=== PATIENT | female | born 1990 | race Caucasian/White ===

== ENCOUNTER 2017-11-02 12:50 | Emergency (ER) | payer OTHER, MEDICAID | END 2017-11-02 15:04 | disposition home or self-care (01) | LOC: FTE 12:50 | DX: H10.9 Unspecified conjunctivitis (principal) | CPT/HCPCS: 99283; Z7502 ==

== ENCOUNTER 2017-11-19 13:46 | Emergency (ER) | payer OTHER ==
[2017-11-19 14:03] LABS: URINE PH (Dip) POC 6.5 (5.0-8.5)
[2017-11-19 14:03] LABS: URINE BLOOD (Dip) POC Trace-lysed (NEGATIVE); URINE GLUCOSE (Dip) POC Negative (NEGATIVE); URINE KETONES (Dip) POC Negative (NEGATIVE); URINE LEUKOCYTE EST (Dip) POC 2+ (NEGATIVE); URINE NITRITE (Dip) POC Negative (NEGATIVE); URINE TOTAL PROTEIN POC Negative (NEGATIVE)
[2017-11-19] MEDS: AZITHROMYCIN 250 MG TAB PO (14:46)
[2017-11-19] MEDS: LIDOCAINE 1% (MDV) 10 ML INJ INJ (14:46)
[2017-11-19] MEDS: CEFTRIAXONE 250 MG INJ IM (14:46)
== END 2017-11-19 15:02 | disposition home or self-care (01) ==
LOC: FTE 13:46
DX: N30.00 Acute cystitis without hematuria (principal)
CPT/HCPCS: 81003; 81025; 96372; 99284-25